=== PATIENT | male | born 1990 | race Caucasian/White ===

== ENCOUNTER 2021-05-14 17:20 | Emergency (ER) | payer BC, OTHER, SELFPAY ==
[2021-05-14 17:22] VITALS: BP 147/92; PULSE 88; RESP 18; TEMP 36.1; O2SAT 100; BMI 22.1
[2021-05-14 18:03] LABS: Appearance Urine HAZY; Color Urine YELLOW; Glucose Urine UA NEG (NEG); Leukocyte Esterase Urine NEG (NEG); Nitrite Urine NEG (NEG); Urine Blood NEG (NEG); Urine Ketones NEG (NEG); Urine Protein TRACE MG/DL (NEG-TRACE)
--- NOTE | 2021-05-14 18:18 | ED_ITS ---
HPI - Skin/Abscess/Foreign Bdy General Chief complaint: Skin/Abscess/Foreign Body Stated complaint: Rash ? Allergic Reaction Time Seen by Provider: 05/14/21 17:25 Source: patient Mode of arrival: ambulatory Limitations: no limitations History of Present Illness HPI narrative: 30 y/o male presents to the ER with reports of itching and painful poison susannah on his bilateral elbows x3 days. He also reports new painful, red, raw lesion on the tip of his penis that started 2 days ago. He reports he thinks it started as small vesicles like poison susannah but is now a large area that is red, raw and painful, not itchy. He states there is some yellow crusting surrounding the area. No penile discharge or dysuria. He reports same sexual partner x3 months and last sexual intercourse 5 days ago before the lesion was present. He admits to frequent and rough masterbation. No history of lesions like this in the past. No other areas on his body other than the elbows that have poison susannah and those lesions are crusted and scabbed over. No fever or chills. 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) Associated symptoms: denies other symptoms Treatments prior to arrival: none Related Data Previous Rx's Medication Instructions Recorded cephalexin 500 mg capsule 500 mg PO Q6H 7 Days #28 cap 05/14/21 mupirocin 2 % topical ointment 1 appl TOPICAL TID #22 g 05/14/21 prednisone 10 mg tablets in a dose 10 mg PO DAILY #48 ea 05/14/21 pack Allergies Allergy/AdvReac Type Severity Reaction Status Date / Time No Known Allergies Allergy Verified 05/14/21 17:31 Review of Systems Review of Systems: Constitutional: No Fever, No Chills Respiratory: No Cough, No Sputum Gastrointestinal: No Nausea, No Vomiting, No Diarrhea, No abdominal Pain Genitourinary: No Dysuria, No Urinary Frequency, No Hematuria Musculoskeletal: No joint pain, No Myalgias Skin: + Skin Lesions, + rash Neuro: No Dizziness, No Headache Psych: + Anxiety/Panic Heme/Lymph: No Bruising, No Lymphadenopathy PMFSH Social History Social History Advance Directives: No Advance Directives Information Provided: No Physical Exam Vital Signs: Vital Signs: Last Vital Signs Temp 97 F 05/14/21 17:22 Pulse 88 05/14/21 17:22 Resp 18 05/14/21 17:22 BP 147/92 H 05/14/21 17:22 Pulse Ox 100 05/14/21 17:22 Body Mass Index 22.1 Appearance: Alert. Oriented X3. No acute distress. HEENT: normal inspection CVS: Normal heart rate and rhythm. Pulses normal. Respiratory: No respiratory distress. Skin: Skin warm and dry. Normal skin color. Normal skin turgor. No rashes. Genitalia: glans penis with 1.5 semi-circular erythematous and raw tender area with surrounding yellowing crusting, no vesicles or discharge. no urethreal meatus discharge. no testicular tenderness. Extremities: bilateral extensor surfaces of the elbows with scabbing and erythematous patches, no oozing or dishcarge. no vesicles. Neuro: Oriented X 3. No motor deficit. No sensory deficit. Course Course Course Narrative: 30 y/o male presenting to the ER c/o 3 days of poison susannah to the bilateral elbows with concern for a lesion on the glans penis. Lesion is tender and painful not itchy. Doubt syphilis as this is the painful lesion. No current vesicles or discharge. Appears to be bacterial infection. Given recent poison susannah will also empirically treat with course of prednisone taper. Will also treat with topical mupirocin and oral Keflex. He was tested for gonorrhea, chlamydia and herpes zoster. Holding off on treatment for now and will call if any of these cultures are positive initiate treatment at that time. Patient was counseled and is stable for discharge home with the above treatment plan. Advised to follow up with Urology of no improvement or worsening symptoms. MDM - Skin/Abscess/Foreign Bdy Lab Data Labs: Lab Results 05/14/21 Range/Units 17:51 Urine Color YELLOW Urine Appearance HAZY Urine pH 7.0 (5.0-8.0) Ur Specific [place] 1.010 (1.005-1.025) Urine Protein TRACE (NEG-TRACE) MG/DL Urine Glucose (UA) NEG (NEG) MG/DL Urine Ketones NEG (NEG) MG/DL Urine Blood NEG (NEG) Urine Nitrite NEG (NEG) Ur Leukocyte Esterase NEG (NEG) Critical Care Time Critical Care Time Critical Care Time: No Discharge Plan Discharge Clinical Impression: Balanitis, Poison susannah dermatitis Patient Disposition: Home, Self-Care Instructions: Poison Susannah (ED), Balanitis (ED) Additional Instructions: You were tested for Gonorrhea, Chylamadia, and Herpes. We will call you and start treatment if ANY of these are positive. Use the topical antibiotic ointment as directed and take the entire prescribed antibiotic course. Less likely that this is poison susannah, however you are being treated with prednisone taper in the event that it is. No sexual activity or masturbation until lesion is completely healed. If no improvement or if you have worsening symptoms, come back to the ER or follow up with Urology. Prescriptions: New cephalexin 500 mg capsule 500 mg PO Q6H 7 Days Qty: 28 RF: 0 mupirocin 2 % ointment 1 appl topical TID Qty: 22 RF: 0 prednisone 10 mg tablets,dose pack 10 mg PO DAILY Qty: 48 RF: 0 Referrals: Pawan Slade MD [Physician] - 1 week ([facility]) Stand Alone Forms: Work/School Release Interventions: ED Discharge Assessment Last Done: 05/14/21 18:34 Discharge Date/Time: 05/14/21 18:36
[2021-05-15 09:42] LABS: CT PCR NOT DETECTED (Not Detect.); NG PCR NOT DETECTED (Not Detect.)
== END 2021-05-14 18:36 | disposition home or self-care (01) ==
PROVIDERS: Physician Assistant; Emergency Provider Emergency Medicine
DX: L23.7 Allergic contact dermatitis due to plants, except food (principal); N48.1 Balanitis
CPT/HCPCS: 81003; 87255; 87491; 87591; 99283; 99284

== ENCOUNTER 2022-01-07 17:28 | Emergency (ER) | payer OTHER, SELFPAY ==
[2022-01-07 17:55] VITALS: BP 130/76; PULSE 76; RESP 16; TEMP 36.9; O2SAT 98; BMI 18.0
--- NOTE | 2022-01-07 18:14 | ED.PSYCH ---
HPI - Psych General Chief Complaint: ETOH/Substance Use Stated Complaint: Withdrawals Time Seen by Provider: 01/07/22 18:14 Source: patient Mode of arrival: ambulatory Limitations: no limitations History of Present Illness MD complaint: substance abuse Onset (ago): month(s) Duration: other (has not used in 4 days, here looking for suboxone dose has 1st appointment tomorrow in [place] to start on suboxone) History of same: Yes Relieving factors: none Exacerbating factors: drug use Context: other (feels like he is in withdrawal) Associated psychiatric symptoms: none Associated symptoms: other (nausea, sweats, anxiety, shaky) Treatments prior to arrival: none Related Data Previous Rx's Medication Instructions Recorded cephalexin 500 mg capsule 500 mg PO Q6H 7 days #28 caps 05/14/21 mupirocin 2 % topical ointment 1 appl topical TID #22 grams 05/14/21 prednisone 10 mg tablets in a dose 10 mg PO DAILY #48 ea 05/14/21 pack Allergies Allergy/AdvReac Type Severity Reaction Status Date / Time No Known Allergies Allergy Verified 01/07/22 18:02 Review of Systems Review of Systems: Constitutional : No Fever, pos Chills ENT/Mouth : No sore throat, No Rhinorrhea Eyes: No Eye Pain, No Swelling, No Redness Cardiovascular : No Chest Pain, No SOB Respiratory : No Cough, No Sputum, No Wheezing Gastrointestinal : pos Nausea, No Vomiting, No Diarrhea Genitourinary : No Dysuria, No Urinary Frequency, No Hematuria, Musculoskeletal : no joint pain, pos Myalgias, no Joint Swelling Skin : no Skin Lesions, No rash Neuro : No Weakness, No Numbness, No Dizziness, No Headache Psych: pos anxiety, no SI/HI PMFSH Past Medical History Attestation statement: The following information was validated with the patient. Medical History Opiate abuse, continuous Social History Social History (Updated 01/07/22 @ 18:35 by Leeanne Bernabe DO) Patient Tobacco Use Status: Tobacco use Unknown Substance Use Type: Opiates Advance Directives: No Advance Directives Information Provided: No Physical Exam Vital Signs: Vital Signs: Last Vital Signs Temp 98.4 F 01/07/22 17:55 Pulse 76 01/07/22 17:55 Resp 16 01/07/22 17:55 BP 130/76 01/07/22 17:55 Pulse Ox 98 01/07/22 17:55 O2 Del Method 01/07/22 17:55 BMI result Body Mass Index 18.0 Appearance: Alert. Oriented X3. No acute distress. Eyes: Pupils equal, round and reactive to light. ENT: Pharynx normal. Neck: Normal inspection. Neck supple. CVS: Normal heart rate and rhythm. Pulses normal. Respiratory: No respiratory distress. Breath sounds normal. Abdomen: Soft and nontender. Skin: Skin warm and dry. Normal skin color. Normal skin turgor. Extremities: No lower extremity edema. No calf ttp Neuro: Oriented X 3. No motor deficit. No sensory deficit. Anxious Course Course Course Narrative: feels much better, still slightly sweaty and doesn't feel 100%, repeat 4/ will DC home afterwards MDM - Psych MDM Narrative Medical decision making narrative: 31 yo male with hx of opiate abuse disorder, he sniffs 2 bags of heroin a day or more, he has no SI/HI. He is alert and oriented x 3. He has an appointment tomorrow in [place] to start on suboxone. He has not used in 4 days he understands that he could go into preciptated withdrawal if he is not truthful. He is in the ED looking for a dose tonight because he is so uncomfortable. Will give / and see how he does. May repeat 2nd dose if he does not improve. Discharge Plan Discharge Clinical Impression: Opiate abuse, continuous Patient Disposition: Home, Self-Care Instructions: Opioid Use Disorder (ED) Additional Instructions: return to ED for any worsening symptoms or concerns please go to your appointment tomorrow Prescriptions: No Action cephalexin 500 mg capsule 500 mg PO Q6H 7 Days Qty: 28 0RF mupirocin 2 % ointment 1 appl topical TID Qty: 22 0RF prednisone 10 mg tablets,dose pack 10 mg PO DAILY Qty: 48 0RF Rx Instructions: Take 4 tabs x4 days, then 3 tabs x4 days, then 2 tabs x4 days then 1 tab x4 days. discard remainder Stand Alone Forms: Work/School Release
[2022-01-07] MEDS: Buprenorphine/Naloxone 4/1 mg FILM 1 FILM SUBLINGUAL ×2 (18:48→20:00)
== END 2022-01-07 20:05 | disposition home or self-care (01) ==
PROVIDERS: Emergency Provider Emergency Medicine
DX: F11.10 Opioid abuse, uncomplicated (principal); F41.9 Anxiety disorder, unspecified; R68.83 Chills (without fever); R11.0 Nausea; F19.10 Other psychoactive substance abuse, uncomplicated
CPT/HCPCS: 99282; 99283

== ENCOUNTER 2023-09-12 15:52 | Emergency (ER) | payer OTHER, SELFPAY ==
[2023-09-12 16:27] VITALS: BP 120/74; PULSE 97; O2SAT 96
[2023-09-12 16:28] VITALS: BP 111/73; PULSE 87; RESP 18; TEMP 36.8; O2SAT 95; BMI 21.1
[2023-09-12 16:34] VITALS: PULSE 91
--- NOTE | 2023-09-12 16:37 | PC.NURSE ---
pt changed over and belongings in dec
--- NOTE | 2023-09-12 16:42 | MHC.EDTECH ---
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
--- NOTE | 2023-09-12 16:45 | PC.NURSE ---
pt is alert and oriented, skin pwd, respirations even and unlabored, ls clear, pt's pupils slightly pinpoint-pt reports using fentanyl earlier today, ns on the monitor and vs stable
--- NOTE | 2023-09-12 16:50 | ED_ITS ---
HPI - Overdose General Chief Complaint: Overdose Stated Complaint: using fentanyl Time Seen by Provider: 09/12/23 16:19 History of Present Illness HPI Narrative: Patient is a 33-year-old male with a history of heroin and fentanyl use. Usually snorted. Patient denies any IV drug use. Not suicidal not homicidal. Is already on Suboxone. Has follow-up for substance abuse coaching. Presented today after using the fentanyl. Patient require Narcan wake up. Came in for further evaluation. Patient denies any complaint at this time. Related Data Previous Rx's Medication Instructions Recorded cephalexin 500 mg capsule 500 mg PO Q6H 7 days #28 caps 05/14/21 mupirocin 2 % topical ointment 1 appl topical TID #22 grams 05/14/21 prednisone 10 mg tablets in a dose 10 mg PO DAILY #48 ea 05/14/21 pack Allergies Allergy/AdvReac Type Severity Reaction Status Date / Time No Known Allergies Allergy Verified 01/07/22 18:02 Review of Systems Review of Systems: No fever no chills no chest pain or shortness of breath Yes all other systems are reviewed and are negative [facility] Past Medical History Attestation statement: The following information was validated with the patient. Medical History Opiate abuse, continuous Social History Social History Alcohol intake: current Alcohol intake frequency: a few times a month Patient Tobacco Use Status: Tobacco use Unknown Smoked in Last 30 Days: Yes Use of substances other than those prescribed or required for medical reasons: Yes Substance Use Type: Other Substance Use Type Other:: fentanyl Advance Directives: No Advance Directives Information Provided: Yes Physical Exam Vital Signs: Vital Signs: Last Vital Signs Temp 98.0 F 09/12/23 17:30 Pulse 78 09/12/23 17:30 Resp 15 09/12/23 17:30 BP 107/59 L 09/12/23 17:30 Pulse Ox 94 09/12/23 17:30 O2 Del Method Room Air 09/12/23 17:30 BMI result Body Mass Index 21.1 Appearance: Alert. Oriented X3. No acute distress. Eyes: Pupils equal, round and reactive to light. ENT: Pharynx normal. Neck: Normal inspection. Neck supple. No lymph nodes noted. No crepitus CVS: Normal heart rate and rhythm. Pulses normal. Normal S1 and S2 Respiratory: No respiratory distress. Breath sounds normal. No Wheezing. No rales Abdomen: Soft and nontender. No rigidity. No distention. good BS x4 Skin: Skin warm and dry. Normal skin color. Normal skin turgor. Extremities: No lower extremity edema. Neurovascular intact to all extremities. No Lacerations. No Rash Neuro: Oriented X 3. No motor deficit. No sensory deficit. Moving all extermities. No slurred speech Medical Decision Making Medical Decision Making MDM Narrative: Patient well-appearing no acute distress. Lungs are clear. There is no murmurs appreciated. O2 sat is normal. Will monitor carefully for 2 hours. In stable condition. Patient is monitored in the emergency department. There is no acute distress he is awake alert. Will discharge at the 2 hour ban. Patient is calling his family right now Differential Diagnosis Differential Diagnoses: The differential diagnosis associated with the pr esentation includes Polysubstance abuse, hypoglycemia, altered mental status Admission/Observation Consideration of admission/observation: Escalation of care including admission/observation considered No need for admission as patient is completely awake alert oriented Social Determinants Patient?s care significantly limited by Social Determinants of Health including: Alcoholism and drug addiction in family Discharge Plan Discharge Clinical Impression: Drug overdose Patient Disposition: Home, Self-Care Instructions: Narcotic Use Disorder (ED) Prescriptions: No Action cephalexin 500 mg capsule 500 mg PO Q6H 7 Days Qty: 28 0RF mupirocin 2 % ointment 1 appl topical TID Qty: 22 0RF prednisone 10 mg tablets,dose pack 10 mg PO DAILY Qty: 48 0RF Rx Instructions: Take 4 tabs x4 days, then 3 tabs x4 days, then 2 tabs x4 days then 1 tab x4 days. discard remainder Referrals: Physician,None [Primary Care Provider] - (Please go to detox)
[2023-09-12 17:30] VITALS: BP 107/59; PULSE 78; RESP 15; TEMP 36.7; O2SAT 94
[2023-09-12 18:34] VITALS: BP 107/59; PULSE 78; RESP 15; TEMP 36.7; O2SAT 94
== END 2023-09-12 18:35 | disposition home or self-care (01) ==
PROVIDERS: Emergency Provider Emergency Medicine Emergency Medical Services
DX: T40.1X1A Poisoning by heroin, accidental (unintentional), initial encounter (principal); Y92.9 Unspecified place or not applicable; Z71.51 Drug abuse counseling and surveillance of drug abuser
CPT/HCPCS: 99284